=== PATIENT | female | born 1960 | race Caucasian/White ===

== ENCOUNTER → 2020-10-18 15:01 | Outpatient (CLI) | payer OTHER, SELFPAY ==
--- NOTE | ~2020-10-18 | MM_ITS ---
EXAMINATION: MM screening alex BI w rush HISTORY: Screening mammogram TECHNIQUE: Craniocaudal and mediolateral oblique 3-D tomosynthesis images were obtained and synthetic 2-D images were generated. CAD analysis was submitted and interpreted. COMPARISON: 04/23/2019 bilateral digital screening mammogram 04/03/2017 diagnostic left digital mammogram 03/25/2017 bilateral digital screening mammogram BREAST PARENCHYMAL COMPOSITION: The breasts are heterogeneously dense, which may obscure small masses . FINDINGS: There are numerous benign calcifications scattered throughout the fibroglandular stroma of each breast. There is no evidence of suspicious mass, calcification, or architectural distortion to s uggest malignancy in either breast. There has been no suspicious interval change. IMPRESSION: 1. No mammographic evidence of malignancy. 2. Recommend routine screening mammography in one year. BI-RADS Category 2: Benign finding(s). Reviewed, dictated and finalized at location A. [employer]IST[employer]INCIPAL
== END ==
PROVIDERS: Visit Provider Nurse Practitioner
DX: Z12.31 Encounter for screening mammogram for malignant neoplasm of breast (principal)
CPT/HCPCS: 77063; 77067

== ENCOUNTER → 2021-08-14 14:03 | Outpatient (REF) | payer OTHER, SELFPAY | LOC: ANHLAB 14:03 | PROVIDERS: PCP Family Medicine; Visit Provider Nurse Practitioner | DX: L98.9 Disorder of the skin and subcutaneous tissue, unspecified (principal) | CPT/HCPCS: 88305 ==

== ENCOUNTER → 2021-08-21 08:48 | Outpatient (REF) | payer OTHER, SELFPAY | LOC: ANHLAB 08:48 | PROVIDERS: PCP Family Medicine; Visit Provider Nurse Practitioner | DX: D49.2 Neoplasm of unspecified behavior of bone, soft tissue, and skin (principal) | CPT/HCPCS: 88305 ==

== ENCOUNTER 2022-03-28 11:37 | Outpatient (CLI) | payer OTHER, SELFPAY ==
--- NOTE | ~2022-03-28 | XR_ITS ---
EXAMINATION: XR hip BI 2V w AP pelvis DATE: 03/28/2022 12:56 INDICATION: Low back pain, unspecified. Right hip pain. TECHNIQUE: An anteroposterior view of the pelvis and 2 views of each hip were obtained. COMPARISON: None. FINDINGS: Bone alignment is normal. No fracture. There is severe osteoarthritis of the sacroiliac berenice nts. There is moderate lumbar spondylosis. Osteitis pubis is noted. There is mild osteoarthritis of t he hips. IMPRESSION: 1. Mild osteoarthritis of the hips. Reviewed, dictated and finalized at location A.
--- NOTE | ~2022-03-28 | XR_ITS ---
XR lumbar spine 2-3V DATE: 03/28/2022 12:56 INDICATION: Back pain TECHNIQUE: AP, lateral, coned lateral lumbosacral views COMPARISON: None FINDINGS: There is osteopenia. Included lower thoracic and lumbar pedicles are intact. No fracture or bone destruction of the lumbar spine is evident. There is grade 1 anterolisthesis at L4-5, apparently due to prominent degenerative change noted at th e apophyseal joints of the lower lumbar and lumbosacral area. Lumbar and lumbosacral interspaces are relatively preserved. Bilateral osteitis condensans ilii. Status post cholecystectomy. IMPRESSION: Prominent degenerative change at the apophyseal joints in the lower lumbosacral area with associated grade 1 anterolisthesis at L4-5 Bilateral osteitis condensans ilii Reviewed, dictated and finalized at location B.
== END 2022-03-28 11:38 ==
PROVIDERS: PCP Family Medicine; Visit Provider Physician Assistant
DX: M54.50 Low back pain, unspecified (principal); M16.0 Bilateral primary osteoarthritis of hip
CPT/HCPCS: 72100; 73521

== ENCOUNTER 2022-04-02 08:58 | Outpatient (CLI) | payer OTHER, SELFPAY ==
--- NOTE | ~2022-04-02 | DEXA_ITS ---
Bone Density Report Name: FLORENCE DORADO Age: 61 Sex: Female Ethnicity: White Date of : 1960 Indication: osteopenia; monitoring treatment; hysterectomy; postmenopausal Referring Provider: MUKESH, REJI Study: Bone densitometry was performed. Exam Date: April 02, 2022 Accession number: [id number] Bone Density: Region BMD T-score Z-score Classification AP Spine (L1-L4) 0.911 -1.2 0.2 Osteopenia Femoral Neck (Left) 0.615 -2.1 -0.8 Osteopenia Total Hip (Left) 0.803 -1.1 -0.2 Osteopenia Femoral Neck (Right) 0.706 -1.3 0.0 Osteopenia Total Hip (Right) 0.778 -1.3 -0.4 Osteopenia Total Hip Mean 0.791 -1.2 -0.3 Osteopenia World Health Organization criteria for BMD impression classify patients as: Normal (T-score at or above -1.0), Osteopenia (T-score between -1.0 and -2.5), or Osteoporosis (T-score at or below -2.5). 10-year Fracture Risk: FRAX not reported because: Treated for osteoporosis Previous Exams: Region Exam Age BMD T-score BMD Change BMD Change Date g/cm2 vs Baseline vs Previous AP Spine(L1-L4) 04/02/2022 61 0.911 -1.2 0.012 0.001 04/23/2019 58 0.910 -1.2 0.010 -0.038* 03/25/2017 56 0.948 -0.9 0.049* 0.049* 03/07/2015 54 0.900 -1.3 Total Hip(Left) 04/02/2022 61 0.803 -1.1 0.013 0.030 04/23/2019 58 0.774 -1.4 -0.017 -0.006 03/25/2017 56 0.780 -1.3 -0.010 -0.010 03/07/2015 54 0.790 -1.2 Total Hip(Right) 04/02/2022 61 0.778 -1.3 -0.007 0.008 04/23/2019 58 0.770 -1.4 -0.015 -0.009 03/25/2017 56 0.779 -1.3 -0.005 -0.005 03/07/2015 54 0.784 -1.3 *Denotes significance at 95% confidence level, LSC for AP Spine = 0.022 g/cm2, LSC for Total Hip = 0.027 g/cm2 Clinical Information Provided by Patient: Is being treated for osteoporosis Has used the following medications: HRT (i.e. estrogen/hormone therapy) Has the following medical conditions: Hysterectomy, Hx of bladder ca- 1999 Patient maximum height was 61.5 Menopause Age: 53 No regular weight bearing exercise Does not regularly consume dairy products Drinks caffeinated beverages Onset of menses at age 12 Number of children 0 Missed period for more than 6 months in a row Impression: The patient has low bone mass, based on the Left Femoral Neck T-score. No significant b
--- NOTE | ~2022-04-02 | MM_ITS ---
EXAMINATION: MM screening alex BI w rush HISTORY: Screening mammogram, family history of breast cancer in her mother. TECHNIQUE: Craniocaudal and mediolateral oblique 3-D tomosynthesis images were obtained and synthetic 2-D images were generated. CAD analysis was submitted and interpreted. COMPARISON: 10/18/2020, 04/23/2019, 04/03/2017, 03/25/2017 BREAST PARENCHYMAL COMPOSITION: The breasts are heterogeneously dense, which may obscure small masses . FINDINGS: RIGHT BREAST: There is no suspicious mass, calcification, or architectural distortion to suggest shavon gnancy. There has been no significant interval change. LEFT BREAST: There is a possible mass in the middle third of the lower-outer breast 12.5 cm from the nipple. IMPRESSION: 1. Possible left breast mass. 2. Additional mammographic views and possible breast ultrasound are recommended. BI-RADS Category 0: Incomplete: Needs additional imaging evaluation. Reviewed, dictated and finalized at location A. IMPRESSION: 1. Possible left breast mass. 2. Additional mammographic views and possible breast ultrasound are recommended . BI-RADS Category 0: Incomplete: Needs additional imaging evaluation.
== END 2022-04-02 08:59 ==
LOC: MICIMG 09:00
PROVIDERS: PCP Family Medicine; Visit Provider Nurse Practitioner
DX: Z12.31 Encounter for screening mammogram for malignant neoplasm of breast (principal); M85.88 Other specified disorders of bone density and structure, other site; R92.8 Other abnormal and inconclusive findings on diagnostic imaging of breast; M85.852 Other specified disorders of bone density and structure, left thigh; M85.851 Other specified disorders of bone density and structure, right thigh
CPT/HCPCS: 77063; 77067; 77080

== ENCOUNTER 2022-04-18 07:53 | Outpatient (CLI) | payer OTHER, SELFPAY ==
--- NOTE | ~2022-04-18 | MMUS_ITS ---
EXAMINATION: MM diagnostic alex LT w rush, US breast LT complete HISTORY: Possible left breast mass, middle third of lower outer breast 12.5 cm from nipple reported o n 04/02/2022 screening mammogram TECHNIQUE: Additional 3-D tomosynthesis images of the left breast were performed and synthetic 2-D im ages were generated. CAD analysis was submitted and interpreted. High resolution complete left breast ultrasound including all 4 quadrants and subareolar area was performed. COMPARISON: 04/02/2022 bilateral screening mammogram FINDINGS: MAMMOGRAPHIC FINDINGS: Low-density circumscribed rounded approximately 8 mm opacity is noted in the lower mid left breast. Low-density circumscribed approximately 1 cm density with partial wall calcification is noted in the upper inner left breast (coned ML Tomosynthesis 48/ image Additional circumscribed smaller masses are noted.. The heterogeneously dense stroma may obscure masses. Numerous benign appearing calcifications are scattered throughout the fibroglandular stroma of the le ft breast. ULTRASOUND: 12:00 6 cm from nipple: Parallel circumscribed 5.2 x 11.6 mm complex lesion without internal vascular ity or posterior shadowing 12:00 7 cm from nipple: Parallel circumscribed 3.1 x 6.7 mm hypoechoic lesion without internal vascul arity or posterior shadowing 12:00 5 cm from nipple: 6.8 x 5.1 x 5.6 mm hypoechoic lesion with through transmission, no internal v ascularity. 2:00 7 cm from nipple: 9.2 x 6.6 x 10 mm multi septated complicated cyst with some through transmissi on, no internal vascularity or posterior shadowing 2:00 3 cm from nipple: Mild the irregular rounded hypoechoic 5.6 x 4.8 mm lesion with some posterior shadowing; ultrasound-guided biopsy is recommended. 3:00 12.5 cm from nipple: Parallel circumscribed oval 4.4 x 7.7 x 7.9 mm sonolucency with through tra nsmission, consistent with cyst 8:00 4 cm from nipple: 4 x 11 mm cyst 9:00 5 cm from nipple: Rounded hypoechoic 5 x 6 mm lesion with some posterior shadowing; ultrasound-g uided biopsy is recommended 10:00 5 cm from nipple: Nearby approximately 5 mm and 6 mm sonolucencies without internal vascularity or posterior shadowing, likely small cysts 11:00 7 cm from nipple: Irregular hypoechoic 6 x 10 x 8 mm lesion with posterior shadowing; ultrasoun d-guided biopsy is recommended. IMPRESSION: 1. Suspicious sonographic masses of left breast at 2:00 3 cm from nipple, 9:00 5 cm from nipple and 1 1:00 7 cm from nipple 2. Ultrasound-guided biopsy of left breast 2:00, 9:00 and 11:00 lesions is recommended BI-RADS category 4, suspicious findings. Dr. Dolan telephoned the report and ultrasound guided biopsy recommendations on 04/18/2022 at 0202 hours to Christel Dinero Reviewed, dictated and finalized at location A. IMPRESSION: 1. Suspicious sonographic masses of left breast at 2:00 3 cm from nipple, 9:00 5 cm from nipple and 11:00 7 cm from nipple 2. Ultrasound-guided biopsy of left breast 2:00, 9:00 and 11:00 lesions is laury mmended BI-RADS category 4, suspicious findings. Dr. Dolan telephoned the report and ultrasound guided biopsy recommendations on 04/18/2022 at 0202 hours to Christel Dinero
== END 2022-04-18 07:54 ==
LOC: MICIMG 07:54
PROVIDERS: PCP Family Medicine; Visit Provider Obstetrics & Gynecology Gynecology
DX: R92.8 Other abnormal and inconclusive findings on diagnostic imaging of breast (principal)
CPT/HCPCS: 76641; 77061; 77065; G0279

== ENCOUNTER 2022-05-08 13:15 | Outpatient (CLI) | payer OTHER, SELFPAY ==
--- NOTE | ~2022-05-08 | MMUS_ITS ---
EXAMINATION: US GUIDED NEEDLE BIOPSY DATE: 05/08/2022 15:19 CDT INDICATION: 2:00, 9:00 and 11:00 sonographic left breast masses (04/18/2022 complete left breast ultras ound) TECHNIQUE AND FINDINGS: The risks and potential benefits of the procedure were discussed with the patient, and written inform ed consent was obtained. Timeout procedure was performed. After sterile preparation of the left breas t, 1% lidocaine was utilized for local anesthesia. An 18-gauge spinal needle was introduced into the 2:00 lesion from a lateral approach using ultrasoun d guidance. The lesion was successfully aspirated, consistent with cyst. An 18-gauge needle was introduced into the 9:00 lesion with ultrasound guidance, but the lesion did n ot aspirate, consistent with solid lesion. Subsequently a 14G spring-loaded biopsy gun needle was advanced to the edge of the 9:00 lesion from a superolateral approach utilizing sonographic guidance. A total of three tissue core samples were ob tained through the lesion. An Inrad tissue marker clip was then placed at the biopsy site.. 2 view m ammogram confirms a ribbon biopsy marker in the 9:00 region of the left breast. (Hematoma is mammographically evident in the upper inner quadrant.) Local anesthetic was administered to the left breast in preparation for percutaneous ultrasound-guide d biopsy of 11:00 lesion. The biopsy needle was advanced toward the lesion, but pulsatile bleeding wa s noted. Over 10 minutes of manual compression was performed, with eventual resolution of the bleeding. However, there is significant left breast hematoma which prevented confident localization of the 11:0 0 lesion of interest for biopsy. I informed the patient that the hematoma interfered with confident i dentification of the lesion and I didn't want to biopsy without being certain that it was the area of concern. I explained that the biopsy would need to be delayed until the hematoma sufficiently resolv ed for identification of the lesion of interest. The patient was very cooperative and very understanding. The patient was given verbal instructions prior to departing from the department. A two view mammogra m was performed to document tissue marker clip placement. The tissue samples from the 9:00 lesion wer e submitted to surgical pathology for histologic analysis. IMPRESSION: 1. Successful ultrasound guided aspiration of 2:00 breast mass, consistent with benign cyst 2. Successful percutaneous ultrasound guided biopsy of 9:00 lesion with biopsy marker placement. Plea se refer to pathology report for histologic analysis. 3. Pulsatile bleeding and subsequent prominent hematoma interfered with biopsy of the 11:00 lesion; r epeat ultrasound-guided biopsy attempt at 11:00 is recommended in one to 2 months Reviewed, dictated and finalized at Location A. Reviewed, dictated and finalized at location A. IMPRESSION: 1. Successful ultrasound guided aspiration of 2:00 breast mass, consistent wit h benign cyst 2. Successful percutaneous ultrasound guided biopsy of 9:00 lesion with biopsy marker placement. Please refer to pathology report for histologic analysis. 3. Pulsatile bleeding and subsequent prominent hematoma interfered with biopsy of the 11:00 lesion; repeat ultrasound-guided biopsy attempt at 11:00 is recomm ended in one to 2 months
== END 2022-05-08 13:16 | disposition home or self-care (01) ==
PROVIDERS: PCP Family Medicine; Visit Provider Surgery
DX: N63.20 Unspecified lump in the left breast, unspecified quadrant (principal); N60.02 Solitary cyst of left breast
CPT/HCPCS: 19000; 19083; 88305; A4648

== ENCOUNTER 2022-08-08 16:05 | Outpatient (CLI) | payer OTHER, SELFPAY ==
--- NOTE | ~2022-08-08 | MR_ITS ---
EXAMINATION: MR lumbar spine wo con DATE: 08/08/2022 16:58 INDICATION: Sciatica, unspecified side. Low back pain. TECHNIQUE: Magnetic resonance imaging (MRI) of the lumbar spine was performed without intravenous con trast. Sequences included sagittal T2-weighted FSE, sagittal T2-weighted FS FSE, sagittal T1-weighted FSE, and axial T2-weighted FSE. COMPARISON: Lumbar spine radiographs 03/28/2022 FINDINGS: There is 4 degrees levocurvature of lumbar spine. There is 2 mm retrolisthesis of L2 on L3 and 6 mm anterolisthesis of L4 on L5. Vertebral body heights are normal. There are hemangiomas in L2 and L3 vertebral bodies. There is mildly decreased disc height at L4-L5. The distal spinal cord signa l intensity is normal. The conus medullaris is at L1. There is [place] at L3-L4 and L4-L5. The follo wing disc levels are specifically discussed: L1-L2: The disc does not extend beyond the endplate margin. There is mild bilateral facet joint osteo arthritis. There is no neural foraminal stenosis. There is no central canal stenosis. L2-L3: The disc is bulging with superimposed right central extrusion. There is mild bilateral facet j oint osteoarthritis. There is no neural foraminal stenosis. There is mild central canal stenosis. L3-L4: The disc is bulging. There is severe bilateral facet joint osteoarthritis. There is mild bilat eral neural foraminal stenosis. There is mild central canal stenosis. L4-L5: The disc is bulging and has an annular fissure. There is severe bilateral facet joint osteoart hritis. There is moderate bilateral neural foraminal stenosis. There is mild central canal stenosis a t the disc level. There are synovial cysts from the facet joints in the epidural space causing modera te central canal stenosis at the L5 pedicular and interpedicular levels. L5-S1: The disc is bulging. There is severe bilateral facet joint osteoarthritis. There is mild bilat eral neural foraminal stenosis. There is no central canal stenosis. IMPRESSION: 1. Moderate lumbar spondylosis. Reviewed, dictated and finalized at location A.
== END 2022-08-08 16:06 ==
LOC: MICIMG 16:07
PROVIDERS: PCP Family Medicine; Visit Provider Physician Assistant
DX: M54.30 Sciatica, unspecified side (principal); M47.896 Other spondylosis, lumbar region
CPT/HCPCS: 72148

== ENCOUNTER 2022-08-19 09:46 | Outpatient (CLI) | payer OTHER, SELFPAY ==
--- NOTE | ~2022-08-19 | US_ITS ---
EXAMINATION: US breast LT limited HISTORY: Patient presents for biopsy of an indeterminate mass at the 11:00 location of the left breas t. TECHNIQUE: Limited left breast ultrasound is performed. FINDINGS: With real-time scanning, no definite correlate is identified for the previously described m ass at the 11:00 location. During previous biopsy, patient experienced a hematoma. The previously dorothea cribed mass could be obscured by resolving hematoma. This was discussed with the patient and a plan f or follow-up left diagnostic mammogram and ultrasound in six months were agreed upon. IMPRESSION: No definite mass at the level o'clock location identified for biopsy. Recommend follow-up left diagno stic mammogram and ultrasound in six months. BI-RADS category 3, probably benign findings. Reviewed, dictated and finalized at location A. IMPRESSION: No definite mass at the level o'clock location identified for biopsy. Recommend follow-up left diagnostic mammogram and ultrasound in six months. BI-RADS category 3, probably benign findings.
== END 2022-08-19 09:47 | disposition home or self-care (01) ==
PROVIDERS: PCP Family Medicine; Visit Provider Surgery
DX: N63.20 Unspecified lump in the left breast, unspecified quadrant (principal); R92.8 Other abnormal and inconclusive findings on diagnostic imaging of breast
CPT/HCPCS: 76642

== ENCOUNTER 2022-10-21 15:43 | Emergency (ER) | payer OTHER, SELFPAY ==
--- NOTE | ~2022-10-21 | XR_ITS ---
EXAM: XR ankle LT min 3V DATE: 10/21/2022 16:12 HISTORY: TWISTED HER L.ANKLE COMING DOWN THE STAIRS TODAY . COMPARISON: X-ray foot 03/24/2016. FINDINGS: Normal mineralization. Small ossific fragment at the anterior superior margin of the anter ior talus seen best in the lateral view, which is new since the prior study. No lytic or blastic lesi on. Achilles and plantar enthesopathy. No erosion or periosteal change. Anterolateral soft tissue swe lling. Small ankle joint effusion. IMPRESSION: Possible old talonavicular capsular avulsion fracture, correlate with point tenderness. O therwise no acute osseous finding in the left ankle. Reviewed, dictated and finalized at location K. NEY LINEMAN IMPRESSION: Possible old talonavicular capsular avulsion fracture, correlate wi th point tenderness. Otherwise no acute osseous finding in the left ankle.
[2022-10-21 15:49] VITALS: BP 127/74; PULSE 91; RESP 16; TEMP 36.2; O2SAT 98
--- NOTE | 2022-10-21 16:03 | PC.NURSE ---
Pt in XRAY at this time.
[2022-10-21 17:34] VITALS: BP 136/85; PULSE 87; RESP 14; O2SAT 99
--- NOTE | 2022-10-21 17:34 | ED.GENADULT ---
HPI - General Adult General Chief complaint: Extremity Injury, Lower Stated complaint: Left ankle injury after fall Time Seen by Provider: 10/21/22 16:17 History of Present Illness HPI narrative: 62-year-old female presented to the emergency department for evaluation of left foot pain. Patient reports that she missed a step and fell down the steps injuring her left foot. Patient states she does have some foot pain but is able to ambulate. Patient denies striking head denies any loss of consciousness. Patient denies any other pain or injury. Patient is going to [place] tomorrow and states she will have follow-up with orthopedics while she is in [place] for 4 months. Related Data Home Medications Medication Instructions Recorded Confirmed escitalopram oxalate 10 mg tablet 15 mg PO DAILY 03/28/22 10/02/22 (Lexapro) Allergies Allergy/AdvReac Type Severity Reaction Status Date / Time Sulfa (Sulfonamide Allergy Unknown Confusion Verified 10/21/22 16:42 Antibiotics) Review of Systems Review of Systems: CONSTITUTIONAL: Denies fever, chills, or sweats. EYES: Denies visual changes, redness, or discharge. ENT: Denies rhinorrhea, congestion, sore throat, or otalgia. CARDIOVASCULAR: Denies chest pain, palpitations, or edema. RESPIRATORY: Denies cough or dyspnea. GASTROINTESTINAL: Denies abdominal pain, nausea, vomiting, or diarrhea. GENITOURINARY: Denies dysuria or hematuria. SKIN: Denies rash or itching. MUSCULOSKELETAL: See HPI NEUROLOGIC: Denies headache, numbness, or weakness. [facility] Past Medical History Medical History Family history of breast cancer in first degree relative H/O primary malignant neoplasm of urinary bladder Surgical History Surgical History History of cholecystectomy History of endometrial ablation 2004 and 2006 and [facility] History of hysterectomy Hx of lithotripsy x 2 (2004) Family History Family History Father Family history of alcoholism Family history of primary malignant neoplasm of liver Mother Hypertension Family history of diabetes mellitus in first degree relative Breast cancer COPD (chronic obstructive pulmonary disease) Obesity Other Family history of elevated blood lipids Social History Social History (Updated 10/02/22 @ 14:29 by Kendra Leblanc Social History: Smoking status: Never smoker Second hand tobacco smoke exposure: No Alcohol intake: never Substance use: never Substance use type: does not use Gender identity (if verbalized by the patient): Female Sexual Orientation (if Verbalized by the Patient): Straight or Heterosexual Exam Narrative: APPEARANCE: Well appearing, no pain, no distress, well-nourished. HEAD: normocephalic, atraumatic. EYES: PERRLA/EOMI, conjunctivae clear. NOSE: Normal no drainage NECK: Supple. No adenopathy, no masses. RESPIRATORY: Airway patent, respirations nonlabored. Clear to auscultation bilaterally, no rales, rhonchi, wheezing. CARDIOVASCULAR: Regular rate and rhythm without murmurs rubs or gallops. ABDOMINAL: Soft, nontender, nondistended, normal bowel sounds MUSCULOSKELETAL: Point tenderness to dorsum of left foot. Some swelling at left lateral ankle. No neck or back tenderness to palpation. NEURO: Alert. Cranial nerves II through XII intact. Good gait. Good coordination SKIN: Warm, dry. Normal Color Course Course Emergency Course: Patient was updated results of her x-rays and was provided a short leg postop splint and was offered crutches. Patient declined the crutches. Patient is going to [place] tomorrow and will be there for 4 months. Patient will have follow-up with orthopedics while she is in [place]. Vital Signs Vital signs: Vital Signs Temperature 97.2 F L 10/21/22 15:49 Pulse Rate 91 10/21/22 15:49 Respiratory Rate
== END 2022-10-21 17:50 | disposition home or self-care (01) ==
PROVIDERS: Emergency Provider Emergency Medicine; PCP Family Medicine
DX: S92.252A Displaced fracture of navicular [scaphoid] of left foot, initial encounter for closed fracture (principal); Z85.51 Personal history of malignant neoplasm of bladder; Z90.710 Acquired absence of both cervix and uterus; W10.9XXA Fall (on) (from) unspecified stairs and steps, initial encounter
CPT/HCPCS: 29515; 73610; 99284

== ENCOUNTER → 2023-04-29 09:04 | Outpatient (CLI) | payer OTHER, SELFPAY ==
--- NOTE | ~2023-04-29 | MM_ITS ---
EXAMINATION: MM diagnostic alex BI w rush HISTORY: Recent left breast biopsy. History of bilateral benign breast biopsies. TECHNIQUE: ML, MLO and CC 3-D tomosynthesis images of both breasts were performed and synthetic 2-D i mages were generated. CAD analysis was submitted and interpreted. COMPARISON: Serial sonographic and mammographic examinations dating back to 10/18/2020 BREAST PARENCHYMAL COMPOSITION: The breasts are heterogeneously dense, which may obscure small masses . FINDINGS: Numerous benign calcifications are scattered throughout both breasts. No suspicious mass, a rchitectural distortion, malignant calcification, skin thickening or retraction or significant new or developing density of either breast is detected. IMPRESSION: 1. Benign findings 2. Routine annual mammographic screening is recommended BI-RADS Category 2: Benign finding(s). Reviewed, dictated and finalized at location A.
== END ==
PROVIDERS: PCP Family Medicine; Visit Provider Surgery
DX: N63.20 Unspecified lump in the left breast, unspecified quadrant (principal)
CPT/HCPCS: 77062; 77066; G0279